=== PATIENT | female | born 1985 | race Caucasian/White ===

== ENCOUNTER 2020-03-28 16:17 | Inpatient (IN) | payer MEDICAID, OTHER ==
[~2020-03-28] VITALS: Ht 157.5 cm; Wt 70.3 kg
[2020-03-28] MEDS ORDERED: LACTATED RINGERS 1,000 ML IV SCH ×2 (17:20→19:00)
[2020-03-28 17:55] LABS: BASOPHILS % (AUTO) 0.4 % (0.0-2.0); EOSINOPHILS # (AUTO) 0.1 K/uL (0-0.4); EOSINOPHILS % (AUTO) 1.1 % (0.0-4.0); HEMATOCRIT 40.5 % (36-48); HEMOGLOBIN 13.3 g/dL (12.0-16.0); LYMPHOCYTES # (AUTO) 1.4 K/uL (2.5-16.5); LYMPHOCYTES % (AUTO) 14.2 % (20.5-51.1); MEAN CORPUSCULAR HEMOGLOBIN 28 pg (27-31); MEAN CORPUSCULAR HGB CONC 33 g/dL (33-37); MEAN CORPUSCULAR VOLUME 84.7 fL (80-94); MONOCYTES # (AUTO) 0.5 K/uL (0.8-1.0); MONOCYTES % (AUTO) 5.1 % (1.7-9.3); NEUTROPHILS % (AUTO) 79.2 % (42.2-75.2); PLATELET COUNT (AUTO) 276 K/uL (140-450); RED BLOOD CELL COUNT(AUTO) 4.78 MIL/uL (4.20-5.40); RED CELL DISTRIBUTION WIDTH 13.5 % (11.6-13.7)
[2020-03-28] MEDS: ONDANSETRON 4 MG/2 ML VIAL IVP PRN (18:15)
[2020-03-28 18:54] LABS: ALBUMIN 3.6 g/dL (3.4-5.0); ANION GAP 17.9 (8-16); CARBON DIOXIDE 24.7 mmol/L (21-32); CREATININE 0.7 mg/dL (0.6-1.3); POTASSIUM 3.6 mmol/L (3.5-5.1); TOTAL BILIRUBIN 0.4 mg/dL (0.0-1.0)
[2020-03-28] MEDS ORDERED: DEXTROSE 10% 1,000 ML IV SCH (19:10)
[2020-03-28] MEDS: PROMETHAZINE 25 MG/ML VIAL IM PRN (21:48)
[2020-03-28] MEDS ORDERED: POTASSIUM CHLORIDE 20 MEQ in DEXTROSE 10% 1,000 ML IV SCH (23:00)
[2020-03-28] MEDS ORDERED: DEXTROSE 10% 1,000 ML IV ONE (23:33)
[2020-03-28] MEDS ORDERED: KCL 20 MEQ/WATER INJ PREMIX 100 ML IV ONE (23:33)
[2020-03-29] MEDS: ONDANSETRON 4 MG/2 ML VIAL IVP PRN (00:34)
[2020-03-29] MEDS ORDERED: DEXT 5% / LACT RING 1,000 ML IV SCH ×2 (00:40→02:00)
[2020-03-29] MEDS ORDERED: POTASSIUM CHLORIDE 20 MEQ in DEXTROSE 10% 1,000 ML IV ONE (01:10)
[2020-03-29] MEDS ORDERED: ONDANSETRON 4 MG/2 ML VIAL ONE (05:40)
[2020-03-29 05:49] LABS: APPEARANCE,URINE SL CLOUDY (CLEAR); BILIRUBIN,URINE NEGATIVE (NEGATIVE); BLOOD, URINE 2+ (NEGATIVE); COLOR,URINE YELLOW (YELLOW); LEUKOCYTE ESTERASE ,URINE 1+ (NEGATIVE); NITRITE, URINE NEGATIVE (NEGATIVE); PH,URINE 7.5 (5.0-9.0); UGLUCOSE NEGATIVE (NEGATIVE)
[2020-03-29] MEDS ORDERED: ONDANSETRON 4 MG/2 ML VIAL IVP PRN (05:50)
[2020-03-29 06:55] LABS: ALBUMIN 3.2 g/dL (3.4-5.0); ANION GAP 11.8 (8-16); CARBON DIOXIDE 27.7 mmol/L (21-32); CREATININE 0.7 mg/dL (0.6-1.3); POTASSIUM 3.5 mmol/L (3.5-5.1); TOTAL BILIRUBIN 0.5 mg/dL (0.0-1.0)
[2020-03-29] MEDS ORDERED: DEXT 5% IVP SCH (08:00)
[2020-03-29] MEDS ORDERED: LACT RING IVP SCH (08:00)
[2020-03-29] MEDS ORDERED: ONDANSETRON IVP SCH (08:00)
--- NOTE | 2020-03-29 09:24 | NUR ---
PATIENT HAS BEEN SCREENED AND CATEGORIZED LOW NUTRITION RISK. PATIENT WILL BE SEEN WITHIN 7 DAYS OF ADMISSION. 04/04/[address]
[2020-03-29] MEDS ORDERED: DEXTROSE 10% IV SCH (17:00)
[2020-03-29] MEDS ORDERED: ONDANSETRON IV SCH (17:00)
[2020-03-29] MEDS: POTASSIUM CHLORIDE 20 MEQ in DEXTROSE 10% 1,000 ML IV SCH (19:42)
[2020-03-29] MEDS: ONDANSETRON 8 MG in NACL 0.9% 50 ML IVP SCH (19:46)
[2020-03-29] MEDS: PROMETHAZINE 25 MG/ML VIAL IM PRN (20:15)
[2020-03-30] MEDS: ONDANSETRON 8 MG in NACL 0.9% 50 ML IVP SCH ×2 (02:52→09:35)
[2020-03-30] MEDS: DEXT 5% / LACT RING 1,000 ML IV SCH ×2 (03:00→18:10)
[2020-03-30 07:13] LABS: ALBUMIN 2.9 g/dL (3.4-5.0); ANION GAP 13.7 (8-16); CREATININE 0.7 mg/dL (0.6-1.3); POTASSIUM 3.7 mmol/L (3.5-5.1); TOTAL BILIRUBIN 0.5 mg/dL (0.0-1.0)
[2020-03-30] MEDS ORDERED: SODIUM PHOSPHATE 118 ML ENEM RC ONE (09:00)
[2020-03-30] MEDS: POTASSIUM CHLORIDE 20 MEQ in DEXTROSE 10% 1,000 ML IV SCH (09:44)
[2020-03-30] MEDS ORDERED: METOCLOPRAMIDE 10 MG/2 ML INJ VIAL ONE (13:58)
[2020-03-30] MEDS ORDERED: ONDANSETRON IV SCH (17:00)
[2020-03-30] MEDS ORDERED: POTASSIUM CHLORIDE IV SCH (17:00)
[2020-03-30] MEDS ORDERED: DEXTROSE 10% IV SCH (17:00)
[2020-03-30] MEDS: METOCLOPRAMIDE 10 MG/2 ML INJ VIAL IVP SCH (20:15)
[2020-03-31] MEDS: ONDANSETRON 8 MG in NACL 0.9% 50 ML IVP SCH ×4 (01:10→20:07)
[2020-03-31] MEDS: POTASSIUM CHLORIDE 20 MEQ in DEXTROSE 10% 1,000 ML IV SCH ×2 (02:34→20:40)
[2020-03-31] MEDS: METOCLOPRAMIDE 10 MG/2 ML INJ VIAL IVP SCH ×4 (03:26→23:00)
[2020-03-31] MEDS ORDERED: ONDANSETRON 4 MG/2 ML VIAL ONE (07:43)
[2020-03-31] MEDS: DEXT 5% / LACT RING 1,000 ML IV SCH (09:56)
[2020-03-31 17:06] LABS: ANION GAP 12.1 (8-16); CARBON DIOXIDE 25.5 mmol/L (21-32); CREATININE 0.6 mg/dL (0.6-1.3); POTASSIUM 3.6 mmol/L (3.5-5.1); TOTAL BILIRUBIN 0.6 mg/dL (0.0-1.0)
[2020-03-31] MEDS ORDERED: ACETAMINOPHEN 650 MG SUPP RC ONE (22:35)
[2020-04-01] MEDS: ONDANSETRON 8 MG in NACL 0.9% 50 ML IVP SCH ×2 (03:05→10:07)
[2020-04-01] MEDS: DEXT 5% / LACT RING 1,000 ML IV SCH (03:32)
[2020-04-01 06:33] LABS: ALBUMIN 2.7 g/dL (3.4-5.0); ANION GAP 13.1 (8-16); CARBON DIOXIDE 24.5 mmol/L (21-32); CREATININE 0.6 mg/dL (0.6-1.3); POTASSIUM 3.6 mmol/L (3.5-5.1); TOTAL BILIRUBIN 0.5 mg/dL (0.0-1.0)
[2020-04-01] MEDS: POTASSIUM CHLORIDE 20 MEQ in DEXTROSE 10% 1,000 ML IV SCH (10:13)
== END 2020-04-01 14:25 | disposition home or self-care (01) | DRG 833 ==
LOC: MFCC 16:17
PROVIDERS: ADMIT Obstetrics & Gynecology; ATTEND Obstetrics & Gynecology
DX: O21.1 Hyperemesis gravidarum with metabolic disturbance (principal); O30.001 Twin pregnancy, unspecified number of placenta and unspecified number of amniotic sacs, first trimester; Z3A.01 Less than 8 weeks gestation of pregnancy
CPT/HCPCS: 36415; 76801; 80053; 81001; 85025; 87086; J2405; J2550; J2765; J3480; J7120; Q0092